=== PATIENT | female | born 1975 | race Caucasian/White ===

== ENCOUNTER 2017-06-12 17:38 | Emergency (ER) | payer OTHER ==
[~2017-06-12] VITALS: Ht 154.9 cm; Wt 68.0 kg
[~2017-06-12 17:38] MED LIST: ALBU8.5H8 IH; ALPR0.5T PO; BUTA1CAP29 PO; CITA40TA5 PO; NORE5TAB3 PO; ONDA4TAB10 PO; OXYC10TA PO; RISP1TAB43 PO; TIZA4CAP PO; TRAZ150T49 PO; TRAZ50TA15 PO
[2017-06-12] MEDS ORDERED: IV NORMAL SALINE 1,000ML 1,000 ML IV ONE (18:30)
[2017-06-12] MEDS ORDERED: ONDANSETRON PF 4 MG/2 ML VIAL. IV ONE (18:45)
[2017-06-12] MEDS ORDERED: KETOROLAC 30 MG/ML VIAL. IM ONE (18:45)
[2017-06-12 19:42] LABS: ALBUMIN 3.7 g/dL (3.4-5.0); ALBUMIN/GLOBULIN RATIO 1.1 (1.0-1.7); CALCIUM 8.7 mg/dL (8.5-10.1); CREATININE 0.7 mg/dL (0.6-1.0); GFR 93.2; TOTAL BILIRUBIN 0.1 mg/dL (0.2-1.0)
[2017-06-12 20:09] LABS: BASO % 0 % (0-3); EOS # 0.2 x10^3/uL (0.0-0.7); EOS % 2 % (0-3); HEMATOCRIT 34.1 % (36.0-47.0); HEMOGLOBIN 11.3 g/dL (12.0-15.5); LYMPH # 2.8 x10^3/uL (1.0-4.8); LYMPH % 31 % (24-48); MEAN CORPUSCULAR HEMOGLOBIN 32 pg (25-35); MEAN CORPUSCULAR HGB CONC 33 g/dL (31-37); MEAN CORPUSCULAR VOLUME 97 fL (79-100); MONO # 0.5 x10^3/uL (0.0-1.1); MONO % 6 % (0-9); NEUT # 5.7 x10^3uL (1.8-7.7); NEUT % 62 % (31-73); PLATELET COUNT 295 x10^3/uL (140-400); RED BLOOD COUNT 3.51 x10^6/uL (3.50-5.40); RED CELL DISTRIBUTION WIDTH 15.3 % (11.5-14.5); WHITE BLOOD COUNT 9.3 x10^3/uL (4.0-11.0)
[2017-06-12] MEDS ORDERED: POTASSIUM CHLORIDE 20 MEQ TABLET.ER. PO ONE (20:45)
[2017-06-12] MEDS ORDERED: ONDA4TAB10 SL (21:02)
[2017-06-12] MEDS ORDERED: POTA20TA84 PO (21:02)
--- NOTE | 2017-06-12 21:02 | PHYS DOC ---
Past History Past Medical History: No Pertinent History Past Surgical History: No Surgical History Alcohol Use: None Drug Use: None Adult General Chief Complaint Chief Complaint: MULTIPLE COMPLAINTS HPI HPI Patient is a 41-year-old female who presents here today complaining of nausea, vomiting, diarrhea, sore throat, ear pain, cough, congestion, rhinorrhea times approximately 4-5 days now. Patient denies any abdominal pain. Patient has any chest pain. Patient reports she hasn't time. Appears well although her having episodes of nausea vomiting diarrhea intermittently. Patient denies any history of hypertension diabetes lung liver or kidney pals. Patient is not drink although she does smoke cigarettes as well as marijuana. Review of systems: Constitutional: Denies fever or chills Eyes: Denies change in visual acuity, redness, or eye pain HENT: Denies nasal congestion or sore throat Respiratory: Denies cough or shortness of breath All other systems were reviewed and found to be within normal limits, except as documented in this note. Physical exam: Constitutional: Well developed, well nourished, no acute distress, non-toxic appearance. HENT: Normocephalic, atraumatic, bilateral external ears normal, nose normal. Eyes: PERRLA, EOMI, conjunctiva normal, no discharge. Neck: Normal range of motion, no tenderness, supple, no stridor. Cardiovascular: Heart rate regular rhythm, Lungs & Thorax: Bilateral breath sounds clear to auscultation Abdomen: No abdominal distention. Skin: Warm, dry, no erythema, no rash. Back: Normal spinal curvature Extremities: No tenderness, no cyanosis, no clubbing, ROM intact, no edema. Neurologic: Alert and oriented X 3, normal motor function, normal sensory function, no focal deficits noted. Psychologic: Affect normal, judgement normal, mood normal. Patient's ER physical exam was most remarkable: Alert awake and oriented 3. Nontoxic appearing. Abdomen soft nontender no rebound or guarding NABS. No Munoz sign, no tenderness to McBurney's point. Patient not present with any signs or symptoms of be consistent with an acute surgical abdomen. : Chest x-ray as interpreted by ER physician reveals: Normal heart with no infiltrates or effusions. Labs reviewed: Hypokalemia with potassium 3.0 otherwise a normal CBC, CMP Assessment and plan: 1. 41-year-old female who presents here today complaining of what appears to be a viral illness. Patient's ER workup is been unremarkable. Patient be discharged home with instructions regarding viral illness including Citrobacter and for her nausea vomiting diarrhea, hypokalemia. While in the ER the patient being on Zofran, Toradol, saline and she feels much improved. Patient be discharged home in stable condition with instructions follow-up with her primary care physician. Current Medications Current Medications Current Medications Medications (Trade) Dose Ordered Sig/Luz Maria Start Time Stop Time Status Last Admin Dose Admin Ketorolac Tromethamine (Toradol) 30 mg 1X ONCE 06/12/17 18:45 06/12/17 18:46 DC 06/12/17 18:45 30 MG Ondansetron HCl (Zofran) 4 mg 1X ONCE 06/12/17 18:45 06/12/17 18:46 DC 06/12/17 18:45 4 MG Potassium Chloride (Klor-Con) 40 meq 1X ONCE 06/12/17 20:45 06/12/17 20:46 DC 06/12/17 20:40 40 MEQ Sodium Chloride 1,000 ml @ 1,000 mls/hr 1X ONCE 06/12/17 18:30 06/12/17 19:29 DC 06/12/17 18:30 1,000 MLS/HR Allergies Allergies Allergies Coded Allergies Type Severity Reaction Last Updated Verified duloxetine Allergy Mild 06/10/15 Yes fluoxetine Allergy Mild 06/10/15 Yes lithium Allergy Mild 06/10/15 Yes varenicline Allergy Mild 06/10/15 Yes zolpidem Allergy Mild 06/10/15 Yes Current Patient Data Vital Signs Vital Signs Date Time Temp Pulse Resp B/P (MAP) Pulse Ox O2 Delivery O2 Flow Rate FiO2 06/12/17 18:13 97.9 74 20 99 Room Air Lab Results Laboratory Tests Test 06/12/17 18:19 06/12/17 19:47 Sodium Level 141 mmol/L (136-145) Potassium Level 3.0 mmol/L (3.5-5.1) L Chloride Level 107 mmol/L (98-107) Carbon Dioxide Level 23 mmol/L (21-32) Anion Gap 11 (6-14) Blood Urea Nitrogen 7 mg/dL (7-20) Creatinine 0.7 mg/dL (0.6-1.0) Estimated GFR (Cockcroft-Gault) 93.2 BUN/Creatinine Ratio 10 (6-20) Glucose Level 94 mg/dL (70-99) Calcium Level 8.7 mg/dL (8.5-10.1) Total Bilirubin 0.1 mg/dL (0.2-1.0) L Aspartate Amino Transferase (AST) 16 U/L (15-37) Alanine Aminotransferase (ALT) 18 U/L (14-59) Alkaline Phosphatase 128 U/L (46-116) H Total Protein 7.0 g/dL (6.4-8.2) Albumin 3.7 g/dL (3.4-5.0) Albumin/Globulin Ratio 1.1 (1.0-1.7) White Blood Count 9.3 x10^3/uL (4.0-11.0) Red Blood Count 3.51 x10^6/uL (3.50-5.40) Hemoglobin 11.3 g/dL (12.0-15.5) L Hematocrit 34.1 % (36.0-47.0) L Mean Corpuscular Volume 97 fL (79-100) Mean Corpuscular Hemoglobin 32 pg (25-35) Mean Corpuscular Hemoglobin Concent 33 g/dL (31-37) Red Cell Distribution Width 15.3 % (11.5-14.5) H Platelet Count 295 x10^3/uL (140-400) Neutrophils (%) (Auto) 62 % (31-73) Lymphocytes (%) (Auto) 31 % (24-48) Monocytes (%) (Auto) 6 % (0-9) Eosinophils (%) (Auto) 2 % (0-3) Basophils (%) (Auto) 0 % (0-3) Neutrophils # (Auto) 5.7 x10^3uL (1.8-7.7) Lymphocytes # (Auto) 2.8 x10^3/uL (1.0-4.8) Monocytes # (Auto) 0.5 x10^3/uL (0.0-1.1) Eosinophils # (Auto) 0.2 x10^3/uL (0.0-0.7) Basophils # (Auto) 0.0 x10^3/uL (0.0-0.2) EKG EKG [] Radiology/Procedures Radiology/Procedures [] Course & Med Decision Making Course & Med Decision Making Pertinent Labs and Imaging studies reviewed. (See chart for details) [] Dragon Disclaimer Dragon Disclaimer This electronic medical record was generated, in whole or in part, using a voice recognition dictation system. Departure Departure: Impression: Primary Impression: Nausea and vomiting Additional Impression: Viral illness Disposition: HOME, SELF-CARE Condition: IMPROVED Referrals: QUAN SIMON APRN (PCP) Patient Instructions: Hypokalemia, Viral Syndrome Scripts Ondansetron (ZOFRAN ODT) 4 Mg Tab.rapdis 1 TAB SL Q8HRS for NAUSEA, #15 TAB Prov: OMAR ARANDA MD 06/12/17 Potassium Chloride (K-Tab ER) 20 Meq Tablet.er 20 MEQ PO BID, #10 TAB.SR Prov: OMAR ARANDA MD 06/12/17 Problem Qualifiers OMAR ARANDA MD Jun 12, 2017 21:02
[2017-06-12 21:05] VITALS: BP 123/95
[2017-06-12 21:21] LABS: CLARITY,URINE CLEAR; COLOR,URINE YELLOW; GLUCOSE,URINE NEG (NEG)
[2017-06-12 21:22] LABS: BACTERIA,URINE FEW /HPF (0-FEW); BILIRUBIN,URINE NEG (NEG); NITRITE,URINE NEG (NEG); SQUAMOUS EPITHELIAL CELL,UR MANY /LPF; UROBILINOGEN,URINE 0.2 mg/dL (0.2 mg/dL)
--- NOTE | 2017-06-13 07:30 | RAD ---
Chest, 2 views, 06/12/2017: History: Cough, congestion The heart size is normal. No pulmonary infiltrate is seen. There is no evidence of pleural fluid. IMPRESSION: No acute cardiopulmonary abnormality is detected.
== END 2017-06-12 21:40 | disposition home or self-care (01) ==
LOC: ER 17:38
DX: B34.9 Viral infection, unspecified (principal); F17.210 Nicotine dependence, cigarettes, uncomplicated; F12.10 Cannabis abuse, uncomplicated; E87.6 Hypokalemia; Z88.1 Allergy status to other antibiotic agents; Z88.8 Allergy status to other drugs, medicaments and biological substances
CPT/HCPCS: 36415; 71046; 80053; 81001; 85025; 96361; 96372; 96374; 99285; J1885; J2405; J7030